=== PATIENT | male | born 1965 | race Caucasian/White ===

== ENCOUNTER 2016-12-01 07:17 | Emergency (ER) | payer OTHER ==
[2016-12-01 07:29] VITALS: TEMP 97.9; BMI 22.3
[2016-12-01] MEDS ORDERED: SODIUM CHLORIDE 1,000 ML IV STA (08:26)
--- NOTE | 2016-12-01 08:29 | PDOC ---
History of Present Illness - General History Source: Patient - History of Present Illness Timing/Duration: other (last night) Associated Symptoms: reports: nausea/vomiting. denies: chest pain, fever/chills , headaches, shortness of breath <Noelle YinGalindoAraceli - Last Filed: 12/01/16 13:46> <ZoeAnil - Last Filed: 12/02/16 09:44> - General Chief Complaint: Nausea/Vomiting Stated Complaint: DIZZINESS, VOMITING Time Seen by Provider: 12/01/16 07:47 Past History - Past Medical History Other medical history: PT DENIES MECICAL HX - Psycho/Social/Smoking Cessation Hx Suicidal Ideation: No Smoking History: Never smoked Hx Alcohol Use: No Drug/Substance Use Hx: No <Katey YinKenan - Last Filed: 12/01/16 13:46> <Anil Enriquez - Last Filed: 12/02/16 09:44> - Past Medical History Allergies/Adverse Reactions: Allergies Allergy/AdvReac Type Severity Reaction Status Date / Time No Known Allergies Allergy Verified 12/01/16 07:30 Home Medications: Ambulatory Orders Diazepam [Valium] 2 mg PO Q8H PRN #30 tablet MDD 6mg 12/01/16 Review of Systems - Review of Systems Constitutional: No: Chills, Fever Respiratory: No: Shortness of Breath, Stridor Cardiac (ROS): No: Chest Pain ABD/GI: No: Diarrhea, Vomiting, Abdominal cramping : Yes: Frequency. No: Dysuria <Noelle YinGalindoAraceli - Last Filed: 12/01/16 13:46> *Physical Exam - Vital Signs Last Vital Signs Temp Pulse Resp BP Pulse Ox 97.9 F 58 L 16 112/72 98 12/01/16 07:27 12/01/16 07:27 12/01/16 07:27 12/01/16 07:27 12/01/16 07:27 - Physical Exam General Appearance: Yes: Appropriately Dressed. No: Apparent Distress HEENT: positive: Normal Voice Neck: positive: Supple Respiratory/Chest: positive: Lungs Clear, Normal Breath Sounds. negative: Respiratory Distress Cardiovascular: positive: Regular Rate, S1, S2 Gastrointestinal/Abdominal: positive: Soft. negative: Tender Musculoskeletal: negative: CVA Tenderness Integumentary: positive: Dry, Warm Neurologic: positive: Fully Oriented, Alert, Normal Mood/Affect, Motor Strength 5/5, Finger to Nose. negative: Facial Droop (no nystagmus, Kishan intact, no drift, no ataxia) <Dinorah Yin - Last Filed: 12/01/16 13:46> - Vital Signs Last Vital Signs Temp Pulse Resp BP Pulse Ox 97.9 F 61 18 116/74 99 12/01/16 07:27 12/01/16 13:47 12/01/16 13:47 12/01/16 13:47 12/01/16 13:47 <Anil Enriquez - Last Filed: 12/02/16 09:44> Heart Score/ECG Review - ECG Intrepretation Comment:: 12/01/16 09:33 Sinus fanny @ 55 bpm <Dinorah Yin - Last Filed: 12/01/16 13:46> ED Treatment Course - LABORATORY CBC & Chemistry Diagram: 12/01/16 08:40 12/01/16 08:40 - RADIOLOGY Radiology Studies Ordered: Category Date Time Status CHEST X-RAY PORTABLE* [RAD] Stat Radiology 12/01/16 08:26 Ordered <Dinorah Yin - Last Filed: 12/01/16 13:46> - LABORATORY CBC & Chemistry Diagram: 12/01/16 08:40 12/01/16 08:40 - ADDITIONAL ORDERS Additional order review: 12/01/16 08:40 RBC 4.55 MCV 94.1 MCHC 32.7 RDW 13.1 MPV 8.3 Neutrophils % 52.0 Lymphocytes % 36.0 Monocytes % 11.1 H Eosinophils % 0.8 Basophils % 0.1 - Medications Given in the ED: ED Medications Discontinued Medications Generic Name Dose Route Start Last Admin Trade Name Freq PRN Reason Stop Dose Admin Diazepam 5 mg 12/01/16 11:17 12/01/16 11:50 Valium Injection - IVPUSH 12/01/16 11:18 5 mg ONCE ONE Administration Sodium Chloride 1,000 mls @ 1,000 mls/hr 12/01/16 08:26 12/01/16 08:47 Normal Saline - IV 12/01/16 09:25 1,000 mls/hr ASDIR STA Administration Meclizine HCl 25 mg 12/01/16 08:49 02/06/17 09:41 Antivert - PO 12/01/16 08:50 25 mg ONCE ONE Administration Methylprednisolone Sodium Succinate 125 mg 12/01/16 11:18 12/01/16 11:55 Solu-Medrol - IVPB 12/01/16 11:19 125 mg ONCE ONE Administration Ondansetron HCl 4 mg 12/01/16 08:49 12/01/16 09:40 Zofran - PO 12/01/16 08:50 4 mg ONCE ONE Administration <ZoeAnil العراقي - Last Filed: 12/02/16 09:44> Medical Decision Making - Medical Decision Making 12/01/16 08:27 51-year-old male, denies any past medical history, here with dizziness w/ n/v. Patient reports being in usual state of health until last night when he got up to have a bowel movement and states while walking back to bed the room began spinning and states symptoms worsened when he moved his head too quickly. At some point began to have nausea, vomiting. No headache, visual changes, focal weakness, recent URI symptoms, chest pain, shortness of shortness of breath. Denies history of similar episode. No abdominal pain, change in bowel movements , fever or chills. Patient also complaining of urinary frequency 1 year. Has not seek medical treatment for unclear reasons. No known history of diabetes or prostate issues See exam Vertigo w/ n/v ? peripheral, non-focal in ED and no cerebellar findings to suspect stroke at this time -meclizine/IVF reassess -labs/ekg/CT head -dispo pending work up 12/01/16 10:11 12/01/16 11:37 Pt continues to c/o vertigo on sitting up and walking despite IVF and meclizine. Neuro exam remains unchanged from prior. Labs and CT unremarkable. Will give dose of valium and solumedrol as d/w ED attg. If sxs persists, will get neuro c/s and possibly admit for MRI 12/01/16 13:48 Patient reports significantly improvement in symptoms now and able to ambulate without becoming vertiginous. Pt now admits that he has had similar sxs in the past that improved w/ meclizine. Will discharge with Valium as discussed with ED attending, and referral for neurology <Dinorah Yin - Last Filed: 12/01/16 13:46> - Medical Decision Making 12/02/16 09:44 The patient was seen and evaluated in conjunction with GAYLE Stoner under my direct supervision, ancillary studies were reviewed. I agree with the plan as outlined by GAYLE Yin . <Anil Enriquez - Last Filed: 12/02/16 09:44> *DC/Admit/Observation/Transfer <Katey YinmayoAraceli - Last Filed: 12/01/16 13:46> <Anil Enriquez - Last Filed: 12/02/16 09:44> Diagnosis at time of Disposition: Vertigo - Discharge Dispostion Disposition: HOME Condition at time of disposition: Improved - Prescriptions Prescriptions: Diazepam [Valium] 2 mg PO Q8H PRN #30 tablet MDD 6mg PRN Reason: Vertigo - Referrals Referrals: Edward Mina MD [Staff Physician] - - Patient Instructions Printed Discharge Instructions: Vertigo Additional Instructions: Clarence Valium segn sea necesario. Mareos y si los sntomas empeoran, volver a la [place]. De lo contrario, el seguimiento con el Dr. Hines, de neurologa Educacin para el paciente: Vrtigo (un tipo de mareo) (Conceptos Bsicos) Redactado por los mdicos y editores de [employer] Qu son el mareo y el vrtigo? El mareo es nicole sensacin que a veces es dif cil de describir, andres a menudo hace que tanner sienta que est a punto de caerse o desmayarse. El mareo tambin puede hacer que se sienta inestable e impedirle caminar derecho. El vrtigo es un tipo de mareo que hace que se sienta scar si estuviera dando vueltas, balancendose, inclinndose o scar si la habitacin se moviera alrededor de usted. Estas sensaciones van y vienen y podran durar segundos, horas o lott; y es posible que se sienta peor cuando mueve la johnnie, cambia de posicin, tose o estornuda. Algunas personas que padecen vrtigo tienen dificultad para caminar. Otras tienen nuseas y podran vomitar. Qu causa el vrtigo? Las causas ms comunes del vrtigo incluyen: ?Problemas en el odo interno En el interior del odo hay nicole pequea red de conductos que se llenan de lquido, en cuyo interior flotan depsitos de calcio especiales. En conjunto, estos conductos y los depsitos conforman el sistema vestibular. Dayanara sistema le dice al cerebro en qu posicin se encuentra el cuerpo y tambin lo ayuda a mantener el equilibrio (figura 1). Si los conductos del interior del odo interno se inflaman o se froylan dep sitos de calcio en exceso, puede desarrollar vrtigo y perder el equilibrio. Coy puede tener vrtigo si la inflamacin ejerce presin sobre los nervios del odo interno. A veces, esta inflamacin es causada por nicole infeccin viral. ?Lesin en la johnnie Las lesiones en la johnnie y las conmociones pueden afectar al odo interno y causar vrtigo. ?Medicinas Algunas medicinas pueden daar el odo interno y causar vrtigo. ?Migraas A veces, las migraas pueden causar vrtigo. ?Problemas en el cerebro Los problemas en el cerebro, scar un accidente cerebrovascular (derrame) o nicole esclerosis mltiple, coy pueden causar v rtigo. Rosina consultar a un mdico o enfermero? Consulte a buckner mdico o enfermero de inmediato si tiene vrtigo y: ?Tiene un dolor de johnnie nuevo o korin ?Tiene fiebre superior a 100.4 F (38 C) ?Empieza a genna doble o tiene problemas para genna con claridad ?Tiene problemas para hablar o escuchar ?Siente debilidad en un brazo o nicole pierna, o el karla se para un lado ?Tiene desmayos ?Siente adormecimiento u hormigueo ?Siente dolor en el pecho ?No puede dejar de vomitar Coy debe consultar a un mdico o enfermero si tiene vrtigo que dura varios minutos o ms y: ?Tiene ms de 60 aos ?Tuvo un accidente cerebrovascular (derrame) en el pasado ?Corre riesgo de tener un accidente cerebrovascular (derrame), porque tiene diabetes o fuma Si tiene mareo o vrtigo que aparece y desaparece, andres no tiene ningn problema de los anteriores, programe nicole zeb con buckner mdico o enfermero. Recreation Therapy Teacher se trata el vrtigo? Si buckner mdico sabe lo que causa buckner vrtigo, es probable que trate nima problema directamente. Por ejemplo, si tiene depsitos de calcio en el odo interno, el mdico podra intentar retirarlos movindole la johnnie de nicole manera especial. Si el mdico no sabe cul es la causa de buckner vrtigo, es posible que le d tratamientos para los sntomas que aparecen con el vrtigo. Por ejemplo, puede darle medicinas para aliviar las nuseas y los vmitos. Si buckner vrtigo es muy intenso, coy podra recomendarle un tratamiento llamado rehabilitacin del equilibrio, en el cual le ensean ejercicios que pueden ayudarlo a sobrellevar el vrtigo. Qu puedo hacer por mi cuenta para sobrellevar el vrtigo? Si tiene problemas para pararse o caminar debido al vrtigo, corre el riesgo de caerse. Para disminuir los riesgos de cadas, coni que buckner casa sea lo ms koroma posible. Deshgase de todos los cables sueltos, los objetos que no use y las alfombras resbaladizas. Adems, asegrese de usar un calzado resistente, con buen agarre, y de que los lugares por donde circula estn despejados y elizabeth iluminados. Ms mckinley sobre dayanara mary Patient education: Dizziness and vertigo (Beyond the Basics) Print Language: FINNISH
[2016-12-01 08:49] LABS: BASOPHIL 0.1 % (0-2.0); EOSINOPHIL 0.8 % (0-4.5); MCH 30.8 pg (25.7-33.7); MCHC 32.7 g/dl (32.0-35.9); MEAN CELL VOLUME 94.1 fl (80-96); MEAN PLT VOLUME 8.3 fl (7.5-11.1); PLATELET COUNT 154 K/MM3 (134-434); RDW 13.1 % (11.9-15.9); WHITE BLOOD COUNT 4.8 K/mm3 (4.0-10.0)
[2016-12-01] MEDS ORDERED: MECLIZINE HCL 25 MG TABLET (FP) PO ONE (08:49)
[2016-12-01] MEDS ORDERED: ONDANSETRON 4 MG TABLET PO ONE (08:49)
[2016-12-01 09:07] LABS: ALBUMIN 3.5 g/dl (3.4-5.0); ANION GAP 7 (8-16); BILIRUBIN,TOTAL 0.6 mg/dL (0.2-1.0); CALCIUM 8.6 mg/dL (8.5-10.1); CO2 28 mmol/L (21-32); GLUCOSE,RANDOM 89 mg/dL (74-106); SGOT/AST 22 U/L (15-37); SGPT/ALT 31 U/L (12-78); TOT PROT 6.2 g/dl (6.4-8.2)
[2016-12-01 09:09] LABS: URINE APPEARANCE CLEAR; URINE BILIRUBIN NEGATIVE (NEGATIVE); URINE BLOOD NEGATIVE (NEGATIVE); URINE COLOR STRAW; URINE GLUCOSE (UA) NEGATIVE (NEGATIVE); URINE KETONE NEGATIVE (NEGATIVE); URINE LEUK ESTERASE NEGATIVE (NEGATIVE); URINE NITRITE NEGATIVE (NEGATIVE); URINE PROTEIN NEGATIVE (NEGATIVE); URINE UROBILINOGEN NEGATIVE E.U./dl (0.2-1.0)
[2016-12-01 09:10] LABS: ALK PHOS 109 U/L (45-117); TROPONIN I < 0.02 ng/ml (0.00-0.05)
[2016-12-01] MEDS ORDERED: ONDANSETRON *ODT* 4 MG TABLET ONE (09:39)
[2016-12-01] MEDS ORDERED: MECLIZINE HCL 25 MG TABLET (FP) ONE (09:39)
[2016-12-01] MEDS ORDERED: diazePAM CARPU-JECT 10 MG/2 ML DISP.SYRIN IVPUSH ONE (11:17)
[2016-12-01] MEDS ORDERED: methylPREDNISolone NA SUCC 125 MG/2 ML VIAL IVPB ONE (11:18)
[2016-12-01] MEDS ORDERED: methylPREDNISolone NA SUCC 125 MG/2 ML VIAL ONE (11:43)
[2016-12-01] MEDS ORDERED: diazePAM CARPU-JECT 10 MG/2 ML DISP.SYRIN ONE (11:43)
[2016-12-01 13:48] VITALS: BP 116/74; PULSE 61
--- NOTE | 2016-12-02 00:26 | EKG ---
Test Reason : Blood Pressure : / mmHG Vent. Rate : 055 BPM Atrial Rate : 055 BPM P-R Int : 128 ms QRS Dur : 094 ms QT Int : 378 ms P-R-T Axes : 049 -46 020 degrees QTc Int : 361 ms SINUS BRADYCARDIA LEFT AXIS DEVIATION ABNORMAL ECG NO PREVIOUS ECGS AVAILABLE Confirmed by LILI SERRANO MD ([id number]) on 12/02/2016 12:25:49 AM Referred By: Confirmed By:LILI SERRANO MD
== END 2016-12-01 13:50 | disposition home or self-care (01) ==
LOC: JER 07:17
PROC: 3E033NZ Introduction of Analgesics, Hypnotics, Sedatives into Peripheral Vein, Percutaneous Approach (ICD-10-PCS; principal; 2016-12-01)
PROC: 3E033GC Introduction of Other Therapeutic Substance into Peripheral Vein, Percutaneous Approach (ICD-10-PCS; 2016-12-01)
PROC: 3E0337Z Introduction of Electrolytic and Water Balance Substance into Peripheral Vein, Percutaneous Approach (ICD-10-PCS; 2016-12-01)
DX: R55 Syncope and collapse (principal)
CPT/HCPCS: 36415; 70450-TC; 71010-TC; 80053; 81003; 82550; 82553; 84484; 85025; 93005; 93010; 99284-25

== ENCOUNTER 2023-02-23 17:18 | Inpatient (IN) | payer OTHER ==
[2023-02-23 18:17] VITALS: BMI 24.9
[2023-02-23] MEDS ORDERED: ONDANSETRON 4 MG/2 ML VIAL IVPUSH ONE (21:15)
[2023-02-23] MEDS ORDERED: ACETAMINOPHEN 1000 MG/100 ML BAG IVPB ONE (21:15)
[2023-02-23] MEDS ORDERED: SODIUM CHLORIDE 1,000 ML IV STA (21:24)
[2023-02-23] MEDS ORDERED: FAMOTIDINE 20 MG/50 ML IVPB 20 MG/50 ML MG IVPB ONE ×2 (21:24→21:36)
[2023-02-23] MEDS ORDERED: MAG HYDROX/AL HYDROX/SIMETH 30 ML UNIT-DOSE CUP PO ONE (21:24)
[2023-02-23] MEDS ORDERED: ACETAMINOPHEN INJECTION 100 ML IVPB ONE (21:35)
[2023-02-23] MEDS ORDERED: ONDANSETRON 4 MG/2 ML VIAL ONE (21:35)
[2023-02-23] MEDS ORDERED: MAG HYDROX/AL HYDROX/SIMETH 30 ML UNIT-DOSE CUP ONE (21:35)
[2023-02-23 22:17] LABS: BASO % 0.4 % (0-2.0); EOS % 0.7 % (0-4.5); HEMATOCRIT 38.5 % (35.4-49); LYMPH % 25.9 % (8-40); MCHC 33.7 g/dl (32.0-35.9); MEAN CELL VOLUME 92.1 fl (80-96); MEAN PLT VOLUME 8.5 fl (7.5-11.1); MONO % 16.8 % (3.8-10.2); NEUT % 56.2 % (42.8-82.8); PLATELET COUNT 215 10^3/uL (134-434); RBC 4.18 M/mm3 (4.00-5.60); RDW 13.7 % (11.9-15.9); WHITE BLOOD COUNT 7.1 K/mm3 (4.0-10.0)
[2023-02-23 22:19] LABS: EPI CELLS 2 /uL (0-25.1); HYALINE CASTS 1 /uL (0-3.1); PH,URINE 5.5 (5.0-8.0); URINE APPEARANCE CLEAR; URINE BACTERIA 2 /uL (0-1359); URINE BILIRUBIN NEGATIVE (NEGATIVE); URINE COLOR YELLOW; URINE GLUCOSE (UA) NEGATIVE (NEGATIVE); URINE KETONE NEGATIVE (NEGATIVE); URINE LEUK ESTERASE NEGATIVE (NEGATIVE); URINE NITRITE NEGATIVE (NEGATIVE); URINE PROTEIN 1+ (NEGATIVE); URINE RBC 6 /uL (0-23.9); URINE UROBILINOGEN 0.2 mg/dL (0.2-1.0); URINE WBC 9 /uL (0-25.8)
[2023-02-23 22:34] LABS: CHLORIDE 98 mmol/L (98-107); POTASSIUM 5.4 mmol/L (3.5-5.1); SODIUM 132 mmol/L (136-145)
[2023-02-23 22:36] LABS: ALBUMIN 2.5 g/dl (3.4-5.0); CALCIUM 11.8 mg/dL (8.5-10.1)
[2023-02-23 22:37] LABS: ANION GAP 11 MMOL/L (8-16); BLOOD UREA NITROGEN 66.6 mg/dL (7-18); CO2 23 mmol/L (21-32); GLUCOSE,RANDOM 103 mg/dL (74-106); LIPASE 167 U/L (73-393); MAGNESIUM 2.5 mg/dL (1.8-2.4)
[2023-02-23 22:40] LABS: SGOT/AST 23 U/L (15-37)
[2023-02-23 22:41] LABS: BILIRUBIN,TOTAL 0.3 mg/dL (0.2-1); TOT PROT 7.1 g/dl (6.4-8.2)
[2023-02-23 22:43] LABS: ALK PHOS 90 U/L (45-117)
[2023-02-23 22:48] LABS: SGPT/ALT 43 U/L (13-61)
[2023-02-23 22:49] LABS: CREATININE 11.1 mg/dL (0.55-1.3)
[2023-02-23] MEDS ORDERED: SODIUM CHLORIDE 1,000 ML IV SCH (23:45)
[2023-02-23] MEDS ORDERED: SODIUM ZIRCONIUM CYCLOSILICATE (LOKELMA) 5 GM PACKET ONE (23:56)
[2023-02-24] MEDS ORDERED: SODIUM ZIRCONIUM CYCLOSILICATE (LOKELMA) 5 GM PACKET PO ONE ×2 (00:02→23:06)
[2023-02-24] MEDS ORDERED: LIDOCAINE HCL 2% JELLY 10 ML CARTRIDGE ONE (05:59)
[2023-02-24] MEDS ORDERED: LIDOCAINE HCL 2% JELLY 10 ML CARTRIDGE UR ONE (06:00)
[2023-02-24] MEDS: SODIUM CHLORIDE 1,000 ML IV SCH (06:09)
[2023-02-24] MEDS ORDERED: HEPARIN NA (PORCINE) 5,000 UNITS/ML 1ML VIAL ONE ×2 (06:11→14:46)
[2023-02-24] MEDS: HEPARIN NA (PORCINE) 5,000 UNITS/ML 1ML VIAL SQ SCH ×3 (06:11→21:28)
[2023-02-24 06:44] LABS: CHLORIDE 102 mmol/L (98-107); POTASSIUM 5.3 mmol/L (3.5-5.1); SODIUM 135 mmol/L (136-145)
[2023-02-24 06:48] LABS: ALBUMIN 2.1 g/dl (3.4-5.0); ANION GAP 9 MMOL/L (8-16); BLOOD UREA NITROGEN 70.1 mg/dL (7-18); CO2 24 mmol/L (21-32); GLUCOSE,RANDOM 87 mg/dL (74-106); MAGNESIUM 2.3 mg/dL (1.8-2.4)
[2023-02-24 06:50] LABS: PHOSPHOROUS 7.3 mg/dL (2.5-4.9); SGOT/AST 22 U/L (15-37); SGPT/ALT 33 U/L (13-61)
[2023-02-24 06:52] LABS: BILIRUBIN,TOTAL 0.3 mg/dL (0.2-1)
[2023-02-24 06:54] LABS: ALK PHOS 78 U/L (45-117)
[2023-02-24 06:55] LABS: HEMATOCRIT 35.5 % (35.4-49); MCH 31.4 pg (25.7-33.7); MEAN CELL VOLUME 92.4 fl (80-96); MEAN PLT VOLUME 8.8 fl (7.5-11.1); PLATELET COUNT 202 10^3/uL (134-434); RBC 3.84 M/mm3 (4.00-5.60); RDW 13.6 % (11.9-15.9); WHITE BLOOD COUNT 5.1 K/mm3 (4.0-10.0)
[2023-02-24 07:12] LABS: CREATININE 11.1 mg/dL (0.55-1.3)
[2023-02-24 07:44] LABS: HIV INTERPRETATION NEGATIVE (NEGATIVE)
[2023-02-24] MEDS ORDERED: ACETAMINOPHEN INJECTION 100 ML IVPB ONE (13:28)
[2023-02-24] MEDS: ACETAMINOPHEN 1000 MG/100 ML BAG IVPB PRN ×2 (13:35→21:29)
[2023-02-25] MEDS: SODIUM CHLORIDE 1,000 ML IV SCH ×2 (03:00→17:31)
[2023-02-25] MEDS: HEPARIN NA (PORCINE) 5,000 UNITS/ML 1ML VIAL SQ SCH ×3 (06:46→21:40)
[2023-02-25] MEDS: ONDANSETRON 4 MG/2 ML VIAL IVPUSH PRN (11:01)
[2023-02-25 12:10] LABS: HEMATOCRIT 33.8 % (35.4-49); HEMOGLOBIN 11.3 GM/dL (11.7-16.9); MCHC 33.3 g/dl (32.0-35.9); MEAN CELL VOLUME 92.9 fl (80-96); MEAN PLT VOLUME 9.3 fl (7.5-11.1); PLATELET COUNT 182 10^3/uL (134-434); RBC 3.64 M/mm3 (4.00-5.60); RDW 13.8 % (11.9-15.9); WHITE BLOOD COUNT 5.8 K/mm3 (4.0-10.0)
[2023-02-25 12:11] LABS: CHLORIDE 104 mmol/L (98-107); POTASSIUM 5.2 mmol/L (3.5-5.1); SODIUM 134 mmol/L (136-145)
[2023-02-25 12:14] LABS: CALCIUM 9.8 mg/dL (8.5-10.1)
[2023-02-25 12:15] LABS: ALBUMIN 1.9 g/dl (3.4-5.0); ANION GAP 9 MMOL/L (8-16); BLOOD UREA NITROGEN 68.1 mg/dL (7-18); CO2 21 mmol/L (21-32); GLUCOSE,RANDOM 76 mg/dL (74-106); MAGNESIUM 2.1 mg/dL (1.8-2.4)
[2023-02-25 12:17] LABS: PHOSPHOROUS 6.2 mg/dL (2.5-4.9); SGOT/AST 15 U/L (15-37); SGPT/ALT 30 U/L (13-61)
[2023-02-25 12:18] LABS: TOT PROT 5.5 g/dl (6.4-8.2)
[2023-02-25 12:20] LABS: BILIRUBIN,TOTAL 0.2 mg/dL (0.2-1)
[2023-02-25 12:21] LABS: ALK PHOS 73 U/L (45-117)
[2023-02-25 12:22] LABS: CREATININE 11.2 mg/dL (0.55-1.3)
[2023-02-25] MEDS: SODIUM ZIRCONIUM CYCLOSILICATE (LOKELMA) 5 GM PACKET PO SCH (13:24)
[2023-02-25] MEDS: ACETAMINOPHEN 1000 MG/100 ML BAG IVPB PRN (17:10)
[2023-02-25] MEDS ORDERED: MAG HYDROX/AL HYDROX/SIMETH 30 ML UNIT-DOSE CUP PO ONE (20:01)
[2023-02-26] MEDS: SODIUM CHLORIDE 1,000 ML IV SCH (02:00)
[2023-02-26] MEDS: HEPARIN NA (PORCINE) 5,000 UNITS/ML 1ML VIAL SQ SCH ×2 (06:34→13:12)
[2023-02-26 07:47] LABS: HEMATOCRIT 31.6 % (35.4-49); HEMOGLOBIN 10.8 GM/dL (11.7-16.9); MCH 31.4 pg (25.7-33.7); MEAN CELL VOLUME 92.4 fl (80-96); MEAN PLT VOLUME 9.3 fl (7.5-11.1); PLATELET COUNT 186 10^3/uL (134-434); RBC 3.43 M/mm3 (4.00-5.60); RDW 13.8 % (11.9-15.9); WHITE BLOOD COUNT 5.7 K/mm3 (4.0-10.0)
[2023-02-26 08:08] LABS: CHLORIDE 111 mmol/L (98-107); POTASSIUM 5.1 mmol/L (3.5-5.1); SODIUM 140 mmol/L (136-145)
[2023-02-26 08:14] LABS: ALBUMIN 1.8 g/dl (3.4-5.0); BLOOD UREA NITROGEN 73.6 mg/dL (7-18); GLUCOSE,RANDOM 77 mg/dL (74-106); SGOT/AST 18 U/L (15-37)
[2023-02-26 08:16] LABS: BILIRUBIN,TOTAL 0.3 mg/dL (0.2-1); CALCIUM 9.8 mg/dL (8.5-10.1); TOT PROT 5.1 g/dl (6.4-8.2)
[2023-02-26 08:17] LABS: ALK PHOS 69 U/L (45-117); ANION GAP 9 MMOL/L (8-16); CO2 19 mmol/L (21-32); PHOSPHOROUS 5.8 mg/dL (2.5-4.9); SGPT/ALT 27 U/L (13-61)
[2023-02-26] MEDS ORDERED: MAG HYDROX/AL HYDROX/SIMETH -MYLANTA- ORAL SUSPENSION PO ONE (08:44)
[2023-02-26] MEDS: SODIUM CHLORIDE 0.45% 1,000 ML IV SCH (09:15)
[2023-02-26] MEDS: ACETAMINOPHEN 1000 MG/100 ML BAG IVPB PRN (09:15)
[2023-02-26] MEDS: SODIUM ZIRCONIUM CYCLOSILICATE (LOKELMA) 5 GM PACKET PO SCH (09:16)
[2023-02-26] MEDS: SUCRALFATE 1 GM/10 ML UNIT DOSE CUPS PO SCH (15:41)
[2023-02-26 16:08] LABS: ATYPICAL pANCA <1:20 titer (Neg:<1:20); C-ANCA <1:20 titer (Neg:<1:20)
[2023-02-26 17:07] LABS: FREE KAPPA,SERUM 12.4 mg/L (3.3-19.4)
[2023-02-26] MEDS ORDERED: MAG HYDROX/AL HYDROX/SIMETH 30 ML UNIT-DOSE CUP PO ONE (23:35)
[2023-02-27] MEDS: SUCRALFATE 1 GM/10 ML UNIT DOSE CUPS PO SCH ×2 (06:45→17:29)
[2023-02-27 07:09] LABS: HEMATOCRIT 31.6 % (35.4-49); HEMOGLOBIN 10.9 GM/dL (11.7-16.9); MCH 31.9 pg (25.7-33.7); MCHC 34.6 g/dl (32.0-35.9); MEAN CELL VOLUME 92.3 fl (80-96); MEAN PLT VOLUME 9.1 fl (7.5-11.1); PLATELET COUNT 200 10^3/uL (134-434); RBC 3.43 M/mm3 (4.00-5.60); RDW 13.8 % (11.9-15.9); WHITE BLOOD COUNT 5.9 K/mm3 (4.0-10.0)
[2023-02-27 07:19] LABS: INR 1.14 (0.83-1.09); PROTHROMBIN TIME (PATIENT) 13.2 SEC (9.7-13.0)
[2023-02-27 07:21] LABS: ACTIVATED PTT 30.2 SECONDS (25.2-36.5)
[2023-02-27 07:33] LABS: CHLORIDE 108 mmol/L (98-107); POTASSIUM 5.1 mmol/L (3.5-5.1); SODIUM 136 mmol/L (136-145)
[2023-02-27 07:41] LABS: ALBUMIN 1.9 g/dl (3.4-5.0); BLOOD UREA NITROGEN 75.7 mg/dL (7-18); SGPT/ALT 67 U/L (13-61)
[2023-02-27 07:42] LABS: GLUCOSE,RANDOM 84 mg/dL (74-106); PHOSPHOROUS 5.8 mg/dL (2.5-4.9)
[2023-02-27 07:43] LABS: BILIRUBIN,TOTAL 0.2 mg/dL (0.2-1); TOT PROT 5.4 g/dl (6.4-8.2)
[2023-02-27 07:44] LABS: ALK PHOS 91 U/L (45-117); ANION GAP 8 MMOL/L (8-16); CO2 21 mmol/L (21-32); MAGNESIUM 2.1 mg/dL (1.8-2.4); SGOT/AST 63 U/L (15-37)
[2023-02-27 07:59] LABS: CREATININE 11.3 mg/dL (0.55-1.3)
[2023-02-27] MEDS: SODIUM CHLORIDE 0.45% 1,000 ML IV SCH (09:45)
[2023-02-27] MEDS: SODIUM ZIRCONIUM CYCLOSILICATE (LOKELMA) 5 GM PACKET PO SCH (09:45)
[2023-02-27] MEDS ORDERED: MIDAZOLAM HCL 2 MG/2 ML SINGLE DOSE VIAL ONE (10:27)
[2023-02-27] MEDS ORDERED: FENTANYL CITRATE/PF 50 MCG/ML VIAL ONE (10:28)
[2023-02-27] MEDS ORDERED: SODIUM CHLORIDE 500 ML IV SCH (11:10)
[2023-02-27] MEDS ORDERED: MIDAZOLAM HCL 2 MG/2 ML SINGLE DOSE VIAL IVPUSH ONE ×2 (11:22→11:36)
[2023-02-27] MEDS ORDERED: FENTANYL CITRATE/PF 50 MCG/ML VIAL IVPUSH ONE (11:22)
[2023-02-27] MEDS ORDERED: ACETAMINOPHEN 325 MG TABLET (FP) PO ONE (20:30)
[2023-02-28] MEDS ORDERED: FLUTICASONE PROP 0.05% 16 GM NASAL SPRAY NS ONE (00:51)
[2023-02-28] MEDS ORDERED: MELATONIN 5 MG TABLETS PO ONE (00:52)
[2023-02-28] MEDS: SUCRALFATE 1 GM/10 ML UNIT DOSE CUPS PO SCH ×2 (06:39→17:44)
[2023-02-28 08:21] LABS: HEMATOCRIT 31.2 % (35.4-49); HEMOGLOBIN 10.7 GM/dL (11.7-16.9); MCH 31.7 pg (25.7-33.7); MCHC 34.3 g/dl (32.0-35.9); MEAN CELL VOLUME 92.4 fl (80-96); MEAN PLT VOLUME 9.8 fl (7.5-11.1); PLATELET COUNT 206 10^3/uL (134-434); RBC 3.38 M/mm3 (4.00-5.60); RDW 13.7 % (11.9-15.9); WHITE BLOOD COUNT 7.8 K/mm3 (4.0-10.0)
[2023-02-28 08:27] LABS: CHLORIDE 108 mmol/L (98-107); POTASSIUM 4.6 mmol/L (3.5-5.1); SODIUM 137 mmol/L (136-145)
[2023-02-28 08:33] LABS: ALBUMIN 2.1 g/dl (3.4-5.0); ANION GAP 11 MMOL/L (8-16); BLOOD UREA NITROGEN 77.8 mg/dL (7-18); CALCIUM 10.6 mg/dL (8.5-10.1); CO2 18 mmol/L (21-32); GLUCOSE,RANDOM 88 mg/dL (74-106)
[2023-02-28 08:35] LABS: PHOSPHOROUS 6.7 mg/dL (2.5-4.9); SGPT/ALT 147 U/L (13-61)
[2023-02-28 08:36] LABS: SGOT/AST 116 U/L (15-37); TOT PROT 5.9 g/dl (6.4-8.2)
[2023-02-28 08:37] LABS: BILIRUBIN,TOTAL 0.4 mg/dL (0.2-1)
[2023-02-28 08:38] LABS: ALK PHOS 112 U/L (45-117)
[2023-02-28 09:01] LABS: CREATININE 10.8 mg/dL (0.55-1.3)
[2023-02-28] MEDS: ONDANSETRON 4 MG/2 ML VIAL IVPUSH PRN ×2 (09:49→17:45)
[2023-02-28] MEDS: SODIUM CHLORIDE 0.45% 1,000 ML IV SCH (09:49)
[2023-02-28] MEDS: SODIUM ZIRCONIUM CYCLOSILICATE (LOKELMA) 5 GM PACKET PO SCH (09:51)
[2023-02-28] MEDS: HEPARIN NA (PORCINE) 5,000 UNITS/ML 1ML VIAL SQ SCH ×2 (16:32→22:18)
[2023-03-01] MEDS ORDERED: ACETAMINOPHEN 325 MG TABLET (FP) PO ONE (02:25)
[2023-03-01] MEDS: HEPARIN NA (PORCINE) 5,000 UNITS/ML 1ML VIAL SQ SCH ×3 (05:48→21:22)
[2023-03-01] MEDS: SUCRALFATE 1 GM/10 ML UNIT DOSE CUPS PO SCH ×2 (06:24→16:46)
[2023-03-01 07:29] LABS: HEMATOCRIT 27.7 % (35.4-49); HEMOGLOBIN 9.6 GM/dL (11.7-16.9); MCHC 34.7 g/dl (32.0-35.9); MEAN CELL VOLUME 92.2 fl (80-96); PLATELET COUNT 189 10^3/uL (134-434); RDW 13.6 % (11.9-15.9); WHITE BLOOD COUNT 6.5 K/mm3 (4.0-10.0)
[2023-03-01 07:37] LABS: CHLORIDE 112 mmol/L (98-107); POTASSIUM 4.8 mmol/L (3.5-5.1); SODIUM 142 mmol/L (136-145)
[2023-03-01 07:39] LABS: CALCIUM 10.1 mg/dL (8.5-10.1)
[2023-03-01 07:40] LABS: ANION GAP 8 MMOL/L (8-16); BLOOD UREA NITROGEN 76.8 mg/dL (7-18); CO2 22 mmol/L (21-32); MAGNESIUM 1.8 mg/dL (1.8-2.4)
[2023-03-01 07:43] LABS: SGOT/AST 56 U/L (15-37); SGPT/ALT 119 U/L (13-61)
[2023-03-01 07:44] LABS: ALBUMIN 1.8 g/dl (3.4-5.0); GLUCOSE,RANDOM 91 mg/dL (74-106); TOT PROT 5.2 g/dl (6.4-8.2)
[2023-03-01 07:45] LABS: BILIRUBIN,TOTAL 0.3 mg/dL (0.2-1)
[2023-03-01 07:46] LABS: ALK PHOS 108 U/L (45-117)
[2023-03-01 07:47] LABS: CREATININE 9.5 mg/dL (0.55-1.3); PHOSPHOROUS 5.5 mg/dL (2.5-4.9)
[2023-03-01] MEDS: SODIUM ZIRCONIUM CYCLOSILICATE (LOKELMA) 5 GM PACKET PO SCH (09:12)
[2023-03-01] MEDS: SODIUM CHLORIDE 0.45% 1,000 ML IV SCH ×2 (10:00→21:27)
[2023-03-01] MEDS: ACETAMINOPHEN 500 MG TABLET (FP) PO PRN (13:23)
[2023-03-02] MEDS: HEPARIN NA (PORCINE) 5,000 UNITS/ML 1ML VIAL SQ SCH ×3 (06:49→22:13)
[2023-03-02] MEDS: SUCRALFATE 1 GM/10 ML UNIT DOSE CUPS PO SCH ×2 (06:49→15:31)
[2023-03-02] MEDS: ACETAMINOPHEN 500 MG TABLET (FP) PO PRN ×2 (07:13→17:38)
[2023-03-02 07:31] LABS: HEMOGLOBIN 9.7 GM/dL (11.7-16.9); MCHC 34.7 g/dl (32.0-35.9); MEAN CELL VOLUME 92.3 fl (80-96); MEAN PLT VOLUME 9.7 fl (7.5-11.1); PLATELET COUNT 209 10^3/uL (134-434); RBC 3.04 M/mm3 (4.00-5.60); RDW 13.7 % (11.9-15.9); WHITE BLOOD COUNT 6.2 K/mm3 (4.0-10.0)
[2023-03-02 07:38] LABS: CHLORIDE 111 mmol/L (98-107); POTASSIUM 4.3 mmol/L (3.5-5.1); SODIUM 142 mmol/L (136-145)
[2023-03-02 07:40] LABS: ALBUMIN 1.9 g/dl (3.4-5.0); ANION GAP 8 MMOL/L (8-16); CALCIUM 10.3 mg/dL (8.5-10.1); CO2 23 mmol/L (21-32); GLUCOSE,RANDOM 82 mg/dL (74-106); MAGNESIUM 1.7 mg/dL (1.8-2.4)
[2023-03-02 07:43] LABS: SGOT/AST 31 U/L (15-37); SGPT/ALT 89 U/L (13-61)
[2023-03-02 07:44] LABS: PHOSPHOROUS 5.7 mg/dL (2.5-4.9)
[2023-03-02 07:45] LABS: BILIRUBIN,TOTAL 0.3 mg/dL (0.2-1); TOT PROT 5.5 g/dl (6.4-8.2)
[2023-03-02 07:46] LABS: ALK PHOS 98 U/L (45-117)
[2023-03-02] MEDS ORDERED: MAGNESIUM 2GM/50ML STERILE WATER IVPB IVPB ONE (09:45)
[2023-03-02] MEDS: SODIUM ZIRCONIUM CYCLOSILICATE (LOKELMA) 5 GM PACKET PO SCH (09:58)
[2023-03-02] MEDS: SODIUM CHLORIDE 0.45% 1,000 ML IV SCH (11:16)
[2023-03-02] MEDS ORDERED: ACETAMINOPHEN 1000 MG/100 ML BAG IVPB ONE (11:30)
[2023-03-02] MEDS ORDERED: MAGNESIUM OXIDE 400 MG TABLET (FP) PO ONE (15:31)
[2023-03-02] MEDS: ONDANSETRON 4 MG/2 ML VIAL IVPUSH PRN (17:45)
[2023-03-02] MEDS ORDERED: DEXAMETHASONE SOD PHOSPHATE 10 MG/1 ML VIAL IVPB ONE (18:14)
[2023-03-02] MEDS: MELATONIN 5 MG TABLETS PO PRN (22:14)
[2023-03-03] MEDS: SODIUM CHLORIDE 0.45% 1,000 ML IV SCH ×2 (04:15→09:19)
[2023-03-03] MEDS: HEPARIN NA (PORCINE) 5,000 UNITS/ML 1ML VIAL SQ SCH ×3 (05:45→21:10)
[2023-03-03] MEDS: SUCRALFATE 1 GM/10 ML UNIT DOSE CUPS PO SCH ×2 (06:12→17:23)
[2023-03-03 07:11] LABS: HEMATOCRIT 33.4 % (35.4-49); HEMOGLOBIN 11.5 GM/dL (11.7-16.9); MCH 31.8 pg (25.7-33.7); MCHC 34.4 g/dl (32.0-35.9); MEAN CELL VOLUME 92.3 fl (80-96); MEAN PLT VOLUME 9.6 fl (7.5-11.1); PLATELET COUNT 250 10^3/uL (134-434); RBC 3.61 M/mm3 (4.00-5.60); RDW 13.7 % (11.9-15.9); WHITE BLOOD COUNT 6.9 K/mm3 (4.0-10.0)
[2023-03-03 07:25] LABS: POTASSIUM 4.4 mmol/L (3.5-5.1)
[2023-03-03 07:27] LABS: ALBUMIN 2.3 g/dl (3.4-5.0); BLOOD UREA NITROGEN 66.8 mg/dL (7-18); MAGNESIUM 2.2 mg/dL (1.8-2.4)
[2023-03-03 07:30] LABS: CREATININE 6.7 mg/dL (0.55-1.3)
[2023-03-03 07:32] LABS: BILIRUBIN,TOTAL 0.3 mg/dL (0.2-1); TOT PROT 6.5 g/dl (6.4-8.2)
[2023-03-03] MEDS: SODIUM ZIRCONIUM CYCLOSILICATE (LOKELMA) 5 GM PACKET PO SCH (09:19)
[2023-03-03] MEDS: MELATONIN 5 MG TABLETS PO PRN (21:11)
[2023-03-04 05:32] VITALS: RESP 20
[2023-03-04] MEDS: SODIUM CHLORIDE 0.45% 1,000 ML IV SCH ×2 (05:44→09:20)
[2023-03-04] MEDS: HEPARIN NA (PORCINE) 5,000 UNITS/ML 1ML VIAL SQ SCH (05:44)
[2023-03-04] MEDS: SUCRALFATE 1 GM/10 ML UNIT DOSE CUPS PO SCH (06:14)
[2023-03-04 06:47] LABS: HEMATOCRIT 32.1 % (35.4-49); MCH 31.9 pg (25.7-33.7); MCHC 34.3 g/dl (32.0-35.9); MEAN CELL VOLUME 93.1 fl (80-96); MEAN PLT VOLUME 8.7 fl (7.5-11.1); PLATELET COUNT 268 10^3/uL (134-434); RBC 3.45 M/mm3 (4.00-5.60); RDW 14.2 % (11.9-15.9); WHITE BLOOD COUNT 15.3 K/mm3 (4.0-10.0)
[2023-03-04 07:07] LABS: POTASSIUM 3.5 mmol/L (3.5-5.1)
[2023-03-04 07:11] LABS: ALBUMIN 2.5 g/dl (3.4-5.0); BLOOD UREA NITROGEN 70.5 mg/dL (7-18); CALCIUM 10.7 mg/dL (8.5-10.1)
[2023-03-04 07:12] LABS: MAGNESIUM 2.1 mg/dL (1.8-2.4)
[2023-03-04 07:14] LABS: CREATININE 5.2 mg/dL (0.55-1.3); PHOSPHOROUS 4.1 mg/dL (2.5-4.9)
[2023-03-04 07:16] LABS: BILIRUBIN,TOTAL 0.2 mg/dL (0.2-1); TOT PROT 6.8 g/dl (6.4-8.2)
[2023-03-04 08:10] VITALS: BP 118/77; PULSE 73; TEMP 99.1
[2023-03-04] MEDS: SODIUM ZIRCONIUM CYCLOSILICATE (LOKELMA) 5 GM PACKET PO SCH (09:20)
== END 2023-03-04 12:24 | disposition short-term general hospital (02) | DRG 691 ==
LOC: JER 17:18 → JERBED 23:06 → J4W 02-24 15:20
PROVIDERS: ADMIT Internal Medicine; ATTEND Internal Medicine
PROC: 07DR3ZX Extraction of Iliac Bone Marrow, Percutaneous Approach, Diagnostic (ICD-10-PCS; principal; 2023-02-27)
DX: C90.00 Multiple myeloma not having achieved remission (principal); N17.9 Acute kidney failure, unspecified; C79.51 Secondary malignant neoplasm of bone; E87.5 Hyperkalemia; E83.52 Hypercalcemia; J90 Pleural effusion, not elsewhere classified; M47.816 Spondylosis without myelopathy or radiculopathy, lumbar region; D64.9 Anemia, unspecified
CPT/HCPCS: 0241U-QW; 20225; 36415; 71045-TC-FY; 71250-TC; 72148-TC; 74176-TC; 76775-TC; 76856-TC; 77074-TC-FY; 80053; 81003; 82232; 82550; 82784; 83036; 83520; 83605; 83615; 83690; 83735; 83883; 84100; 84153; 84155; 84165; 84484; 85025; 85027; 85610; 85730; 86038; 86256; 86704; 86708; 86803; 87086; 87340; 87389; 87517; 88300-TC; 93005; 93010; 93306-TC; 97116-GP; 97163-GP; 99285-25; C9803-CS; J1100; J1644; U0003; U0005